=== PATIENT | female | born 1945 | race Two or more races ===

== ENCOUNTER 2020-01-08 15:04 | Emergency (ER) | payer OTHER ==
[~2020-01-08] VITALS: Ht 154.9 cm; Wt 81.6 kg
[2020-01-08] MEDS ORDERED: ONDANSETRON 2MG/ML, 2ML IVPush ONE (15:30)
--- NOTE | 2020-01-08 15:51 | NUR ---
PT PLACED ON BP CUFF, PULSE OX. IV PLACED, LABS DRAWN WITH START. URINE COLLECTED/SENT TO LAB. CALL LIGHT WITHIN REACH, WARM BLANKET PROVIDED. PT REFUSING MORPHINE AT THIS TIME, WANTS SOMETHING "MILD". ERP NOTIFIED.
[2020-01-08 15:59] LABS: BASOPHILS # (AUTO) 0.02 x10^3/uL (0-0.1); BASOPHILS % (AUTO) 0 % (0-1); EOSINOPHILS # (AUTO) 0.06 x10^3/uL (0-0.4); EOSINOPHILS % (AUTO) 1 % (1-7); LYMPHOCYTES # (AUTO) 0.76 x10^3/uL (1-3.4); LYMPHOCYTES % (AUTO) 10 % (22-44); MD NO; MEAN CORPUSCULAR HEMOGLOBIN 31.3 pg (27.0-34.8); MEAN CORPUSCULAR VOLUME 94.6 fL (80-100); MEAN PLATELET VOLUME 7.7 fL (7.4-10.4); MONOCYTES # (AUTO) 0.43 x10^3/uL (0.2-0.8); MONOCYTES % (AUTO) 6 % (2-9); NEUTROPHILS # (AUTO) 6.34 x10^3/uL (1.8-6.8); NEUTROPHILS % (AUTO) 83 % (42-75); PLATELET COUNT 222 x10^3/uL (130-400); RED BLOOD COUNT 3.84 x10^6/uL (3.82-5.3); RED CELL DISTRIBUTION WIDTH 13.7 % (9.6-15.2)
[2020-01-08 16:05] LABS: ALANINE AMINOTRANSFERASE 25 U/L (12-78); ALBUMIN 3.5 g/dL (3.4-5.0); ANION GAP 4 mmol/L (5-15); CALCIUM 8.5 mg/dL (8.5-10.1); CHLORIDE 104 mmol/L (98-107); CREATININE 0.66 mg/dL (0.55-1.02)
[2020-01-08 16:07] LABS: ALKALINE PHOSPHATASE 92 U/L (45-117); BILIRUBIN,TOTAL 0.5 mg/dL (0.2-1.0); TOTAL PROTEIN 8.4 g/dL (6.4-8.2)
--- NOTE | 2020-01-08 16:16 | NUR ---
DOES PT HAVE IV FOR CT EXAM? Addendum: 01/08/20 at 1639 by AMADOU Addendum: 01/08/[address] HAVING DIFFICULTIES W/MEDITECH TODAY. UNABLE TO SEE TRIAGE NOTES SUDDENLY. I WILL WORK TO GET THIS RESOLVED SOON POSSIBLE.
[2020-01-08 16:26] LABS: MICROSCOPIC INDICATED
[2020-01-08 16:31] LABS: CULTURE INDICATED? YES
--- NOTE | 2020-01-08 17:10 | NUR ---
PT BACK FROM CT. CALL LIGHT WITHIN REACH, FAMILY AT BS.
--- NOTE | 2020-01-08 17:38 | NUR ---
ALL RESULTS BACK, PT FOR RECHECK.
[2020-01-08] MEDS ORDERED: ONDANSETRON 2MG/ML, 2ML ONE (17:41)
[2020-01-08] MEDS ORDERED: MORPHINE SULFATE 4 MG/ML, 1ML ONE (17:41)
[2020-01-08] MEDS ORDERED: OMNIPAQUE 350 MG/ML, 100ML BOTTLE ONE (17:44)
[2020-01-08] MEDS: MORPHINE SULFATE 4 MG/ML, 1ML IVPush PRN ×2 (18:18→18:47)
--- NOTE | 2020-01-08 18:20 | NUR ---
PT ADVISED BY ERP OF RESULTS. MORPHINE OFFERED, PT ACCEPTING AT THIS TIME. PT MEDICATED PER ERP ORDER. CALL LIGHT WITHIN REACH.
[2020-01-08] MEDS ORDERED: ENOXAPARIN 80 MG/0.8 ML SQ ONE (18:30)
[2020-01-08] MEDS ORDERED: SODIUM CHLORIDE 0.9%, 500ML IVBOLUS ONE (18:30)
[2020-01-08] MEDS ORDERED: ENOXAPARIN 80 MG/0.8 ML ONE (18:48)
--- NOTE | 2020-01-08 18:54 | NUR ---
2ND DOSE OF MORPHINE GIVEN FOR 6/10 PAIN. LOVENOX GIVEN PER ERP ORDER. NS BOLUS INFUSING. CALL LIGHT WITHIN REACH.
[2020-01-08 19:22] VITALS: BP 136/69
== END 2020-01-08 19:43 | disposition home or self-care (01) ==
LOC: ED 16:13
DX: R10.32 Left lower quadrant pain (principal); R19.00 Intra-abdominal and pelvic swelling, mass and lump, unspecified site; Z90.710 Acquired absence of both cervix and uterus; Z85.42 Personal history of malignant neoplasm of other parts of uterus
CPT/HCPCS: 36415; 74177; 80053; 81001; 85025; 87086; 96372; 96374; 96375; 96376; 99284; J1650; J2270; J2405; J7040; Q9967; 96365

== ENCOUNTER 2020-01-09 06:07 | Emergency (ER) | payer OTHER ==
--- NOTE | 2020-01-09 06:30 | NUR ---
PT WAS IN THER YESTERDAY FOR THE SAME LLQ ABD PAIN, TODAY THE PAIN FELLS BETTER BUT SHE CAME IN FOR RECHECK BEFORE TRAVELING BACK TO [place]. MONITORS APPLIED, SIDERAILS UP X2, PROVIDED PT WITH WARM BLANKET, CALL LIGHT WITHIN REACH. PA AT BEDSIDE FOR EVAL
--- NOTE | 2020-01-09 06:47 | NUR ---
iv site started, labs drawn.
--- NOTE | 2020-01-09 06:53 | NUR ---
REPORT GIVEN TO ERNIE KATZ
--- NOTE | 2020-01-09 06:54 | NUR ---
REPORT RECEIVED FROM JOSE ALEJANDRO KLEIN.
[2020-01-09 06:59] LABS: BASOPHILS % (AUTO) 0 % (0-1); EOSINOPHILS # (AUTO) 0.08 x10^3/uL (0-0.4); EOSINOPHILS % (AUTO) 1 % (1-7); LYMPHOCYTES # (AUTO) 0.71 x10^3/uL (1-3.4); LYMPHOCYTES % (AUTO) 10 % (22-44); MD NO; MEAN CORPUSCULAR HGB CONC 32.9 g/dL (32.4-35.8); MEAN CORPUSCULAR VOLUME 94.3 fL (80-100); MEAN PLATELET VOLUME 7.9 fL (7.4-10.4); MONOCYTES # (AUTO) 0.48 x10^3/uL (0.2-0.8); MONOCYTES % (AUTO) 7 % (2-9); NEUTROPHILS # (AUTO) 5.87 x10^3/uL (1.8-6.8); NEUTROPHILS % (AUTO) 82 % (42-75); PLATELET COUNT 204 x10^3/uL (130-400); RED CELL DISTRIBUTION WIDTH 13.2 % (9.6-15.2)
[2020-01-09] MEDS ORDERED: SODIUM CHLORIDE FLUSH 10ML SYR IVF ONE (07:00)
[2020-01-09 07:06] LABS: ALBUMIN 3.3 g/dL (3.4-5.0); ANION GAP 4 mmol/L (5-15); CALCIUM 8.4 mg/dL (8.5-10.1); CHLORIDE 105 mmol/L (98-107); CREATININE 0.63 mg/dL (0.55-1.02)
--- NOTE | 2020-01-09 07:23 | NUR ---
pt resting in [facility]. pt's aox4. resps even and unlabored. pt denies any needs or concerns at this time.
--- NOTE | 2020-01-09 07:40 | NUR ---
us at bedside at this time.
--- NOTE | 2020-01-09 07:58 | NUR ---
pt in ct at this time.
[2020-01-09] MEDS ORDERED: OMNIPAQUE 350 MG/ML, 100ML BOTTLE ONE (08:17)
--- NOTE | 2020-01-09 08:38 | NUR ---
pt amb to br and back to room with steady gait.
[2020-01-09 08:42] VITALS: BP 133/73
[2020-01-09] MEDS ORDERED: APIXABAN 5 MG TABLET ONE (09:12)
--- NOTE | 2020-01-09 09:14 | NUR ---
pt medicated per emar. pt tolerated well. pt's aox4. resps even and unlabored.
[2020-01-09] MEDS ORDERED: APIXABAN 5 MG TABLET PO ONE (09:30)
--- NOTE | 2020-01-09 10:09 | NUR ---
Patient given discharge instructions and they have confirmed that they understand the instructions. Patient ambulatory with steady gait.
== END 2020-01-09 10:10 | disposition home or self-care (01) ==
LOC: ED 08:25
DX: I26.99 Other pulmonary embolism without acute cor pulmonale (principal); C18.9 Malignant neoplasm of colon, unspecified; C78.5 Secondary malignant neoplasm of large intestine and rectum; Z90.710 Acquired absence of both cervix and uterus
CPT/HCPCS: 36415; 71275; 80048; 82040; 85025; 93971; 99284; Q9967